=== PATIENT | male | born 1980 | race Hispanic/Latino ===

== ENCOUNTER 2019-02-23 18:27 | Emergency (ER) | payer OTHER ==
[2019-02-23 19:18] LABS: Basophils % (Auto) 0.4 % (0.0-1.8); Eosinophils # (Auto) 0.2 K/mm3 (0.0-0.4); Eosinophils % (Auto) 2.8 % (0.0-4.3); Hematocrit 44.4 % (35.5-45.6); Hemoglobin 15.4 gm/dl (11.8-15.2); Lymphocytes # (Auto) 2.8 K/mm3 (1.2-5.4); Lymphocytes % (Auto) 33.8 % (13.4-35.0); Mean Corpuscular HGB Conc 35 % (32-34); Mean Corpuscular Volume 87 fl (84-94); Monocytes # (Auto) 0.8 K/mm3 (0.0-0.8); Monocytes % (Auto) 9.5 % (0.0-7.3); Platelet Count 326 K/mm3 (140-440); Red Blood Count 5.12 M/mm3 (3.65-5.03); Red Cell Distribution Width 13.5 % (13.2-15.2)
[2019-02-23 19:36] LABS: Bilirubin,Urine NEG (Negative); Blood,Urine LG (Negative); Color,Urine Straw (Yellow); Mucus,Urine FEW /HPF; Protein,Urine <15 mg/dL mg/dL (Negative); Urobilinogen,Urine < 2.0 mg/dL (<2.0)
[2019-02-23 19:37] LABS: WBC,Urine < 1.0 /HPF (0.0-6.0)
[2019-02-23 19:42] LABS: Alanine Aminotransferase 45 units/L (7-56); Albumin 4.8 g/dL (3.9-5); BUN/Creatinine Ratio 7; Blood Urea Nitrogen 6 mg/dL (9-20); Calcium 8.8 mg/dL (8.4-10.2); Hemolysis Index 4
[2019-02-23 19:46] LABS: Amphetamine Screen,Urine PRESUMPTIVE NEGATIVE; Benzodiazepines Screen,Urine PRESUMPTIVE NEGATIVE; Cannabinoid Screen,Urine PRESUMPTIVE NEGATIVE; Cocaine Screen,Urine PRESUMPTIVE NEGATIVE; Methadone Screen,Urine PRESUMPTIVE NEGATIVE; Opiate Screen,Urine PRESUMPTIVE NEGATIVE
[2019-02-23] MEDS ORDERED: VITAMIN B-1 100 MG, FOLVITE 1 MG, INFUVITE 10 ML in NACL 0.9% 1000 ML 1,000 ML IV ONE (20:08)
[2019-02-23] MEDS ORDERED: ATIVAN ONE ×2 (21:29→22:18)
[2019-02-23] MEDS ORDERED: ATIVAN IV ONE (22:18)
--- NOTE | 2019-02-23 23:43 | Emergency Department Report ---
ED Psych HPI - General Chief Complaint: Overdose Stated Complaint: MH Time Seen by Provider: 02/23/19 18:44 Source: family Mode of arrival: Wheelchair - History of Present Illness Initial Comments: 38-year-old male with a past medical history of anxiety, bipolar, and alcohol abuse for over 20 years as well as benzodiazepine dependence presents to the hospital with acute alcohol intoxication, possible overdose, and suicidal ideation. This reports that patient has been on a 3 day alcohol binge. She noticed some scooping up unknown amount of trazodone and Xanax. Patient has an empty bottle of Xanax 60 tabs 0.5 mg filled on February 01. He also has a bottle of trazodone 50 mg 30 tabs prescribed on December 20 with 6 left in the bottle. Apparently they were in the car on the way to [place] when patient attempted to jump out of a moving car on the highway and expressed the he wanted to kill himself. His sister Meli says that he has a tendency to escape from hospitals and needs close monitoring. Meli's phone number is [phone]. Patient denies any physical complaints only stating he wants to leave the ER. - Related Data Home Medications Medication Instructions Recorded Confirmed Last Taken ALPRAZolam [Xanax TAB] 0.5 mg PO BID PRN 02/24/19 02/24/19 Unknown traZODone [Desyrel] 50 mg PO QHS 02/24/19 02/24/19 Unknown Allergies Allergy/AdvReac Type Severity Reaction Status Date / Time No Known Allergies Allergy Verified 02/23/19 20:10 ED Review of Systems ROS: Stated complaint: MH Other details as noted in HPI Comment: All other systems reviewed and negative ED Past Medical Hx - Past Medical History Previous Medical History?: Yes Additional medical history: Anxiety, Bipolar. ETOH abuse x 20 yrs - Social History Smoking Status: Former Smoker Substance Use Type: Alcohol, Prescribed - Medications Home Medications: Home Medications Medication Instructions Recorded Confirmed Last Taken Type ALPRAZolam [Xanax TAB] 0.5 mg PO BID PRN 02/24/19 02/24/19 Unknown History traZODone [Desyrel] 50 mg PO QHS 02/24/19 02/24/19 Unknown History ED Physical Exam - General Limitations: Other - Other Other exam information: Gen.: No acute distress Head: Atraumatic Eyes: Normal appearance ENT: Moist mucous membranes Neck: Normal appearance, no posterior midline tenderness, no meningismus Chest: Clear to auscultation bilaterally Cardiovascular: Regular rate and rhythm Abdomen: Normal appearance, soft, nontender, no rebound or guarding, normal bowel sounds Back: Normal appearance, nontender Extremity: Full range of motion, normal appearance Neuro: Alert oriented 3, clear speech, no focal motor or sensory deficit Psychiatric: Intoxicated, belligerent Skin: No rash ED Course Vital Signs 02/23/19 02/23/19 02/23/19 18:47 19:00 19:30 Temperature 97.9 F Pulse Rate 94 H 95 H 101 H Respiratory 16 12 14 Rate Blood Pressure 168/77 152/71 150/83 Blood Pressure [Left] O2 Sat by Pulse 93 94 94 Oximetry 02/23/19 02/23/19 02/23/19 20:00 20:24 20:30 Temperature Pulse Rate 102 H 94 H Respiratory 9 L 18 15 Rate Blood Pressure 152/71 156/70 Blood Pressure [Left] O2 Sat by Pulse 94 Oximetry 02/23/19 02/23/19 02/23/19 21:00 21:30 22:00 Temperature Pulse Rate 139 H 119 H 93 H Respiratory 21 14 17 Rate Blood Pressure 142/117 142/117 129/86 Blood Pressure [Left] O2 Sat by Pulse 74 L Oximetry 02/23/19 02/23/19 02/23/19 22:30 23:00 23:30 Temperature Pulse Rate 105 H 98 H 94 H Respiratory 11 L 17 17 Rate Blood Pressure 129/86 134/110 114/73 Blood Pressure [Left] O2 Sat by Pulse 95 Oximetry 02/23/19 02/24/19 02/24/19 23:58 00:00 00:30 Temperature Pulse Rate 95 H 93 H 112 H Respiratory 17 19 22 Rate Blood Pressure 114/73 121/76 121/76 Blood Pressure [Left] O2 Sat by Pulse 93 96 Oximetry 02/24/19 02/24/19 02/24/19 01:00 01:30 02:00 Temperature Pulse Rate 93 H Respiratory 17 Rate Blood Pressure 124/60 121/76 118/67 Blood Pressure [Left] O2 Sat by Pulse 91 91 92 Oximetry 02/24/19 02/24/19 02/24/19 02:30 03:00 03:30 Temperature Pulse Rate 95 H 96 H 93 H Respiratory 18 18 18 Rate Blood Pressure 118/67 118/67 118/67 Blood Pressure [Left] O2 Sat by Pulse 90 93 92 Oximetry 02/24/19 02/24/19 02/24/19 04:00 04:30 05:00 Temperature Pulse Rate 89 85 78 Respiratory 16 17 15 Rate Blood Pressure 115/57 115/57 133/75 Blood Pressure [Left] O2 Sat by Pulse 92 93 95 Oximetry 02/24/19 02/24/19 02/24/19 05:30 06:00 06:30 Temperature Pulse Rate Respiratory Rate Blood Pressure 133/75 126/79 126/79 Blood Pressure [Left] O2 Sat by Pulse 88 95 92 Oximetry 02/24/19 02/24/19 02/24/19 07:33 08:21 09:40 Temperature Pulse Rate 93 H 92 H 98 H Respiratory 16 18 18 Rate Blood Pressure Blood Pressure 118/71 162/86 155/78 [Left] O2 Sat by Pulse 95 95 96 Oximetry 02/24/19 02/24/19 15:31 16:26 Temperature 98 F Pulse Rate 118 H 102 H Respiratory 22 Rate Blood Pressure Blood Pressure 123/90 [Left] O2 Sat by Pulse 97 Oximetry - Reevaluation(s) Reevaluation #1: 02/23/19 23:53 contrary to vitals, pt does not have any hypoxia, o2 sat 96% on room air 02/23/19 23:55 repeat alcohol ordered for 3am ED Medical Decision Making - Lab Data Result diagrams: 02/23/19 18:55 02/23/19 18:55 Lab Results 02/23/19 02/23/19 02/23/19 Range/Units 18:55 18:55 18:55 WBC 8.3 (4.5-11.0) K/mm3 RBC 5.12 H (3.65-5.03) M/mm3 Hgb 15.4 H (11.8-15.2) gm/dl Hct 44.4 (35.5-45.6) % MCV 87 (84-94) fl MCH 30 (28-32) pg MCHC 35 H (32-34) % RDW 13.5 (13.2-15.2) % Plt Count 326 (140-440) K/mm3 Lymph % (Auto) 33.8 (13.4-35.0) % [place] % (Auto) 9.5 H (0.0-7.3) % Eos % (Auto) 2.8 (0.0-4.3) % Baso % (Auto) 0.4 (0.0-1.8) % Lymph # 2.8 (1.2-5.4) K/mm3 [place] # 0.8 (0.0-0.8) K/mm3 Eos # 0.2 (0.0-0.4) K/mm3 Baso # 0.0 (0.0-0.1) K/mm3 Seg Neutrophils % 53.5 (40.0-70.0) % Seg Neutrophils # 4.4 (1.8-7.7) K/mm3 Sodium 137 (137-145) mmol/L Potassium 4.2 (3.6-5.0) mmol/L Chloride 93.1 L (98-107) mmol/L Carbon Dioxide 22 (22-30) mmol/L Anion Gap 26 mmol/L BUN 6 L (9-20) mg/dL Creatinine 0.9 (0.8-1.5) mg/dL Estimated GFR > 60 ml/min BUN/Creatinine Ratio 7 % Glucose 117 H (75-100) mg/dL Calcium 8.8 (8.4-10.2) mg/dL Magnesium 2.30 (1.7-2.3) mg/dL Total Bilirubin 0.30 (0.1-1.2) mg/dL AST 52 H (5-40) units/L ALT 45 (7-56) units/L Alkaline Phosphatase 77 (35-129) units/L Total Protein 8.1 (6.3-8.2) g/dL Albumin 4.8 (3.9-5) g/dL Albumin/Globulin Ratio 1.5 % Urine Color (Yellow) Urine Turbidity (Clear) Urine pH (5.0-7.0) Ur Specific [place] (1.003-1.030) Urine Protein (Negative) mg/dL Urine Glucose (UA) (Negative) mg/dL Urine Ketones (Negative) mg/dL Urine Blood (Negative) Urine Nitrite (Negative) Urine Bilirubin (Negative) Urine Urobilinogen (<2.0) mg/dL Ur Leukocyte Esterase (Negative) Urine WBC (Auto) (0.0-6.0) /HPF Urine RBC (Auto) (0.0-6.0) /HPF Urine Mucus /HPF Salicylates < 0.3 L (2.8-20.0) mg/dL Urine Opiates Screen Urine Methadone Screen Acetaminophen (10.0-30.0) ug/mL Ur Barbiturates Screen Ur Phencyclidine Scrn Ur Amphetamines Screen U Benzodiazepines Scrn Urine Cocaine Screen U Marijuana (THC) Screen Drugs of Abuse Note Plasma/Serum Alcohol (0-0.07) % 02/23/19 02/23/19 02/23/19 Range/Units 18:55 18:55 19:12 WBC (4.5-11.0) K/mm3 RBC (3.65-5.03) M/mm3 Hgb (11.8-15.2) gm/dl Hct (35.5-45.6) % MCV (84-94) fl MCH (28-32) pg MCHC (32-34) % RDW (13.2-15.2) % Plt Count (140-440) K/mm3 Lymph % (Auto) (13.4-35.0) % [place] % (Auto) (0.0-7.3) % Eos % (Auto) (0.0-4.3) % Baso % (Auto) (0.0-1.8) % Lymph # (1.2-5.4) K/mm3 [place] # (0.0-0.8) K/mm3 Eos # (0.0-0.4) K/mm3 Baso # (0.0-0.1) K/mm3 Seg Neutrophils % (40.0-70.0) % Seg Neutrophils # (1.8-7.7) K/mm3 Sodium (137-145) mmol/L Potassium (3.6-5.0) mmol/L Chloride (98-107) mmol/L Carbon Dioxide (22-30) mmol/L Anion Gap mmol/L BUN (9-20) mg/dL Creatinine (0.8-1.5) mg/dL Estimated GFR ml/min BUN/Creatinine Ratio % Glucose (75-100) mg/dL Calcium (8.4-10.2) mg/dL Magnesium (1.7-2.3) mg/dL Total Bilirubin (0.1-1.2) mg/dL AST (5-40) units/L ALT (7-56) units/L Alkaline Phosphatase (35-129) units/L Total Protein (6.3-8.2) g/dL Albumin (3.9-5) g/dL Albumin/Globulin Ratio % Urine Color Straw (Yellow) Urine Turbidity Clear (Clear) Urine pH 5.0 (5.0-7.0) Ur Specific [place] 1.002 L (1.003-1.030) Urine Protein <15 mg/dl (Negative) mg/dL Urine Glucose (UA) Neg (Negative) mg/dL Urine Ketones Neg (Negative) mg/dL Urine Blood Lg (Negative) Urine Nitrite Neg (Negative) Urine Bilirubin Neg (Negative) Urine Urobilinogen < 2.0 (<2.0) mg/dL Ur Leukocyte Esterase Neg (Negative) Urine WBC (Auto) < 1.0 (0.0-6.0) /HPF Urine RBC (Auto) 1.0 (0.0-6.0) /HPF Urine Mucus Few /HPF Salicylates (2.8-20.0) mg/dL Urine Opiates Screen Urine Methadone Screen Acetaminophen < 5.0 L (10.0-30.0) ug/mL Ur Barbiturates Screen Ur Phencyclidine Scrn Ur Amphetamines Screen U Benzodiazepines Scrn Urine Cocaine Screen U Marijuana (THC) Screen Drugs of Abuse Note Plasma/Serum Alcohol 0.39 H (0-0.07) % 02/23/19 Range/Units 19:12 WBC (4.5-11.0) K/mm3 RBC (3.65-5.03) M/mm3 Hgb (11.8-15.2) gm/dl Hct (35.5-45.6) % MCV (84-94) fl MCH (28-32) pg MCHC (32-34) % RDW (13.2-15.2) % Plt Count (140-440) K/mm3 Lymph % (Auto) (13.4-35.0) % [place] % (Auto) (0.0-7.3) % Eos % (Auto) (0.0-4.3) % Baso % (Auto) (0.0-1.8) % Lymph # (1.2-5.4) K/mm3 [place] # (0.0-0.8) K/mm3 Eos # (0.0-0.4) K/mm3 Baso # (0.0-0.1) K/mm3 Seg Neutrophils % (40.0-70.0) % Seg Neutrophils # (1.8-7.7) K/mm3 Sodium (137-145) mmol/L Potassium (3.6-5.0) mmol/L Chloride (98-107) mmol/L Carbon Dioxide (22-30) mmol/L Anion Gap mmol/L BUN (9-20) mg/dL Creatinine (0.8-1.5) mg/dL Estimated GFR ml/min BUN/Creatinine Ratio % Glucose (75-100) mg/dL Calcium (8.4-10.2) mg/dL Magnesium (1.7-2.3) mg/dL Total Bilirubin (0.1-1.2) mg/dL AST (5-40) units/L ALT (7-56) units/L Alkaline Phosphatase (35-129) units/L Total Protein (6.3-8.2) g/dL Albumin (3.9-5) g/dL Albumin/Globulin Ratio % Urine Color (Yellow) Urine Turbidity (Clear) Urine pH (5.0-7.0) Ur Specific [place] (1.003-1.030) Urine Protein (Negative) mg/dL Urine Glucose (UA) (Negative) mg/dL Urine Ketones (Negative) mg/dL Urine Blood (Negative) Urine Nitrite (Negative) Urine Bilirubin (Negative) Urine Urobilinogen (<2.0) mg/dL Ur Leukocyte Esterase (Negative) Urine WBC (Auto) (0.0-6.0) /HPF Urine RBC (Auto) (0.0-6.0) /HPF Urine Mucus /HPF Salicylates (2.8-20.0) mg/dL Urine Opiates Screen Presumptive negative Urine Methadone Screen Presumptive negative Acetaminophen (10.0-30.0) ug/mL Ur Barbiturates Screen Presumptive negative Ur Phencyclidine Scrn Presumptive negative Ur Amphetamines Screen Presumptive negative U Benzodiazepines Scrn Presumptive negative Urine Cocaine Screen Presumptive negative U Marijuana (THC) Screen Presumptive negative Drugs of Abuse Note Disclamer Plasma/Serum Alcohol (0-0.07) % - EKG Data -: EKG Interpreted by Sc EKG shows normal: sinus rhythm, ST-T waves (no stemi/t inv) Rate: normal - Medical Decision Making 1013 was signed due to patient's suicidal ideation with attempts. Patient's requiring physical restraint. Patient was initially placed in 2 point restraints but then required 4-point restraints because he was attempting to kick the nurses. Patient then managed to bite his way out of the restraints and attempted to get dressed and leave. Security had to be called to assist with placing patient back in the bed. IV Ativan 2 mg ordered. 4-point restraints placed. Patient continued to be on monitor. Alcohol level is very high. UDS is negative for all substances. CIWA protocol will be initiated. Mental health assessment has been requested. Poison control was notified by RN. See her note for recommendations. Mostly symptomatic treatment. Antipsychotics are not recommended. Benzos as needed. Possibility of also benzo and alcohol withdrawal symptoms. Monitor for respiratory depression. - Differential Diagnosis overdose, drug intoxication, benzo withdrawal, alcohol intoxication Critical Care Time: No Critical care attestation.: If time is entered above; I have spent that time in minutes in the direct care of this critically ill patient, excluding procedure time. ED Disposition Clinical Impression: Alcohol abuse, Alcohol intoxication, Suicidal ideation, Benzodiazepine dependence, Suicide attempt by drug overdose Disposition: [id number]/TX-65 PSY HOSP/PSY UNIT Is pt being admited?: No Condition: Stable Referrals: PRIMARY CAREMD [Primary Care Provider] - 3-5 Days
[2019-02-23] MEDS ORDERED: ATIVAN IV PRN (23:49)
[2019-02-24] MEDS: ATIVAN IV PRN ×2 (12:00→16:00)
--- NOTE | 2019-02-24 12:46 | Consultation ---
History of Present Illness - Reason for Consult Consult date: 02/24/19 Reason for consult: Mental Health Evaluation Requesting physician: THIERNO GODINEZ - Chief Complaint Chief complaint: "I was drunk" - History of Present Psychiatric Illness 38 y,o, white male who presented to the ER for etoh and possibly overdosing per the record. Today the patient was calm during the assessment. 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 He stated that he started drinking (etoh) Thursday (binging). He stated a hx of alcohol abuse since he was a teenager. He stated being sober in the past, but always relapse. He stated that he has a hx of anxiety do and take Xanax as needed when asked. He was asked about his actions prior to coming to the ER reference jumping out of a car, he stated, "That's not true." He stated that his sister is "lying" about his actions. Per the notes, the patient was brought to the ER by the patient's sister Meli. He denies that he attempted to overdose on Xanax and Trazodone. He stated that he lost several Xanax/Trazodne pills over the past couple of days. He denies SI/HI's and AVH's. He denies erratic sleep and a poor appetite. He denies recreational drug use. Per the PDMP, the patient has a long hx of benzo use. Medications and Allergies Allergies Allergy/AdvReac Type Severity Reaction Status Date / Time No Known Allergies Allergy Verified 02/23/19 20:10 Home Medications Medication Instructions Recorded Confirmed Last Taken Type ALPRAZolam [Xanax TAB] 0.5 mg PO BID PRN 02/24/19 02/24/19 Unknown History traZODone [Desyrel] 50 mg PO QHS 02/24/19 02/24/19 Unknown History Active Meds: Active Medications Lorazepam (Ativan) 2 mg IV Q1HR PRN PRN Reason: CIWA-Ar 8-15 Lorazepam (Ativan) 4 mg IV Q1HR PRN PRN Reason: CIWA-Ar 16-25 Last Admin: 02/24/19 00:26 Dose: 4 mg Documented by: Past psychiatric history - Past Medical History Past Medical History: No medical history Past Surgical History: No surgical history - past Psychiatric treatment and history psychiatric treatment history: Hx of alcohol abuse and anxiety per the patient. Denies a fam, psy hx. - Social History Social history: lives with family Mental Status Exam - Vital signs Last Vital Signs Temp 97.9 F 02/23/19 18:47 Pulse 98 H 02/24/19 09:40 Resp 18 02/24/19 09:40 BP 155/78 02/24/19 09:40 Pulse Ox 96 02/24/19 09:40 - Exam Narrative exam: MSE: Appearance: calm, cooperative Behavior: regular eye contact Speech: regular rate and low tone Mood: "okay" Affect: congruent to mood Thought Process: circumstantial Thought Content: denies SI/HI's and AVH's Motor Activity: lying in bed Cognition: A/O x 3 Insight: variable Judgment: poor Results Result Diagrams: 02/23/19 18:55 02/23/19 18:55 Abnormal lab results 02/23/19 02/23/19 02/23/19 Range/Units 18:55 18:55 18:55 RBC 5.12 H (3.65-5.03) M/mm3 Hgb 15.4 H (11.8-15.2) gm/dl MCHC 35 H (32-34) % [facility] % (Auto) 9.5 H (0.0-7.3) % Chloride 93.1 L (98-107) mmol/L BUN 6 L (9-20) mg/dL Glucose 117 H (75-100) mg/dL AST 52 H (5-40) units/L Ur Specific [place] (1.003-1.030) Salicylates < 0.3 L (2.8-20.0) mg/dL Acetaminophen (10.0-30.0) ug/mL Plasma/Serum Alcohol (0-0.07) % 02/23/19 02/23/19 02/23/19 Range/Units 18:55 18:55 19:12 RBC (3.65-5.03) M/mm3 Hgb (11.8-15.2) gm/dl MCHC (32-34) % [facility] % (Auto) (0.0-7.3) % Chloride (98-107) mmol/L BUN (9-20) mg/dL Glucose (75-100) mg/dL AST (5-40) units/L Ur Specific [place] 1.002 L (1.003-1.030) Salicylates (2.8-20.0) mg/dL Acetaminophen < 5.0 L (10.0-30.0) ug/mL Plasma/Serum Alcohol 0.39 H (0-0.07) % 02/24/19 Range/Units 02:59 RBC (3.65-5.03) M/mm3 Hgb (11.8-15.2) gm/dl MCHC (32-34) % [facility] % (Auto) (0.0-7.3) % Chloride (98-107) mmol/L BUN (9-20) mg/dL Glucose (75-100) mg/dL AST (5-40) units/L Ur Specific [place] (1.003-1.030) Salicylates (2.8-20.0) mg/dL Acetaminophen (10.0-30.0) ug/mL Plasma/Serum Alcohol 0.21 H (0-0.07) % All other labs normal. Assessment and Plan Assessment and plan: Impression: Alcohol Use DO. Hx of Anxiety DO per the patient. Possible suicide attempt by jumping out of car. Today the patient was calm during the assessment. No acute withdrawals noted (etoh). UDS is negative. DDX: MDD Recommendations/Plan: Transition 1012 to 2012. Continue CIWA and gather collateral information. Start Klonopin 0.5 mg PO BID to prevent seizures. Dipso: The patient was referred to inpatient psy services. Staffed with Dr Katie Hunter.
[2019-02-24 15:32] VITALS: BP 123/90
== END 2019-02-24 18:30 ==
LOC: ED 18:27
DX: T42.4X2A Poisoning by benzodiazepines, intentional self-harm, initial encounter (principal); F10.129 Alcohol abuse with intoxication, unspecified; R45.851 Suicidal ideations; F13.20 Sedative, hypnotic or anxiolytic dependence, uncomplicated; F41.9 Anxiety disorder, unspecified; F31.9 Bipolar disorder, unspecified; Z87.891 Personal history of nicotine dependence; Z79.899 Other long term (current) drug therapy; Y92.89 Other specified places as the place of occurrence of the external cause
CPT/HCPCS: 36415; 80053; 80307; 81001; 83735; 85025; 93005; 93010; 96365; 96366; 96375; 96376; 99285; J2060; J3411; J7030; 80320; G0480